=== PATIENT | female | born 1935 | race Caucasian/White ===

== ENCOUNTER → 2016-05-24 | Outpatient (CLI) | payer MEDICARE ==
[~2016-05-24] MED LIST: ALLOPURINOL100 MG PO; ATORVASTATIN PO; BENADRYL25 M2 PO; BENICAR 20MG TA20 MG PO; BENICAR HCT 12.1 TAB PO; BENICAR PO; CELEXA 20MG20 MG/TAB PO; CHOLESTYRAMINE1 PO1; CINNAMON500 MG PO; CIPRO 500MG TA500 MG PO; CRANBERRY1 CAP PO; CYANOCOBAL1000 MCG/1 SC; DOMPERIDONE10 MG/CAP PO; EYEDROPS; FERRATE325 MG PO; LEVAQUIN 5500 MG/TA1 PO; MULTIPLE VITAMI1 CAP PO; NEXIUM 20MG20 MG PO; NEXIUM40 MG PO; NORCO 325 MG-51 TAB PO; OGEN; OGEN 0.625MG0.625 MG PO; OGEN PO; PREVALITE4 GM/5.5 G PO; REGLAN 10MG10 MG/TAB PO; SODIUM BICARBO325 MG PO; VITAMIN B-1000 MCG/T PO; VITAMIN D NATU400 IU PO; VITAMIN D31000 IU PO; VITAMIN D32000 IU PO; VOLTAREN GEL 1%1 TU TP; WELCHOL 625MG625 MG PO; XANAX .25M0.25 MG/TA PO; ZOFRAN ODT4 MG PO; ZYLOPRIM 300MG300 MG PO; [UNRECOGNIZED DRUG - OTHER]; [UNRECOGNIZED DRUG - OTHER] PO
== END ==
LOC: MC.RAD 13:27
DX: N63 Unspecified lump in breast (principal)

== ENCOUNTER → 2016-06-22 | Outpatient (CLI) | payer MEDICARE | LOC: MC.RAD 09:33 | DX: S20.01XA Contusion of right breast, initial encounter (principal) ==

== ENCOUNTER → 2017-01-10 | Outpatient (CLI) | payer MEDICARE | LOC: MC.RAD 11:29 | DX: Z12.31 Encounter for screening mammogram for malignant neoplasm of breast (principal) ==

== ENCOUNTER → 2018-01-14 | Outpatient (CLI) | payer MEDICARE | LOC: MC.RAD 06:48 | DX: Z12.31 Encounter for screening mammogram for malignant neoplasm of breast (principal) ==

== ENCOUNTER 2018-01-28 19:21 | Emergency (ER) | payer MEDICARE ==
[2008-01-20 12:54] VITALS: BP 126/71
[~2018-01-28] VITALS: Ht 167.6 cm; Wt 63.6 kg
[2018-01-28 19:28] VITALS: TEMP 97.1
[2018-01-28 20:07] LABS: BASO # 0.1 (0.0-0.2); BASO % 1.1 % (0.0-2.0); EOS # 0.1 (0.0-0.7); EOS % 2.4 % (0-4.0); GRAN # 2.7 (1.4-6.5); GRAN % 49.6 % (42.2-75.2); HEMATOCRIT 32.7 % (37.0-47.0); HEMOGLOBIN 10.8 g/dl (12.5-16.0); LYMPH # 2.2 (1.2-3.4); LYMPH % 39.5 % (20.0-51.0); MEAN CELL VOLUME 93 fl (80.0-100.0); MEAN CORPUSCULAR HEMOGLOBIN 31 pg (27.0-31.0); MEAN CORPUSCULAR HGB CONC 33 g/dl (33.0-37.0); MEAN PLATELET VOLUME 9.7 fl (7.4-10.4); MONO # 0.4 (0.1-0.6); MONO % 7.4 % (1.7-9.3); PLATELET COUNT 201 K/mm3 (130-400); REDCELL DISTRIBUTION WIDTH-CV 15.3 % (11.5-14.5)
[2018-01-28 20:23] LABS: ALBUMIN 4.7 gm/dL (3.5-5.0); BILIRUBIN,TOTAL 0.7 mg/dL (0.0-1.0); C-REACTIVE PROTEIN 0.7 mg/dL (0.0-0.9); CALCIUM 10.1 mg/dL (8.4-10.2); POTASSIUM 5.1 mmol/L (3.4-5.0); TOTAL PROTEIN 7.9 gm/dL (6.4-8.2)
[2018-01-28 20:47] LABS: COLLECTION METHOD CLEAN CATCH
[2018-01-28 20:54] LABS: PH 8 (5-8); SQUAMOUS EPITHELIAL None Seen /hpf; URINE APPEARANCE Clear; URINE BACTERIA None Seen /hpf; URINE BILIRUBIN Negative (NEGATIVE); URINE BLOOD 1+ (NEGATIVE); URINE COLOR Straw; URINE GLUCOSE Negative (NEGATIVE); URINE KETONE Negative (NEGATIVE); URINE LEUKOCYTE ESTERASE Trace (NEGATIVE); URINE NITRATE Negative (NEGATIVE); URINE PROTEIN(semi-quant) 1+ (NEGATIVE); URINE RBC 0-2 /hpf; URINE UROBILINOGEN Negative (NEGATIVE)
[2018-01-28 22:06] VITALS: BP 154/69; PULSE 65
== END 2018-01-28 22:52 | disposition home or self-care (01) ==
LOC: COL.ER 19:21
PROVIDERS: Emergency Medicine
DX: R10.9 Unspecified abdominal pain (principal); E11.22 Type 2 diabetes mellitus with diabetic chronic kidney disease; N18.4 Chronic kidney disease, stage 4 (severe); I12.9 Hypertensive chronic kidney disease with stage 1 through stage 4 chronic kidney disease, or unspecified chronic kidney disease; F41.9 Anxiety disorder, unspecified; Z90.710 Acquired absence of both cervix and uterus; Z90.49 Acquired absence of other specified parts of digestive tract; Z98.890 Other specified postprocedural states
CPT/HCPCS: J2060; J2405; J3010; J7030

== ENCOUNTER → 2018-08-09 | Outpatient (CLI) | payer MEDICARE | LOC: COL.RAD 13:24 | DX: J98.4 Other disorders of lung (principal); K44.9 Diaphragmatic hernia without obstruction or gangrene ==

== ENCOUNTER → 2019-02-13 | Outpatient (CLI) | payer MEDICARE | LOC: MC.RAD 16:37 | DX: Z12.31 Encounter for screening mammogram for malignant neoplasm of breast (principal) ==

== ENCOUNTER → 2019-04-02 | Outpatient (CLI) | payer MEDICARE | LOC: COL.RAD 12:11 | DX: S09.90XA Unspecified injury of head, initial encounter (principal); G31.9 Degenerative disease of nervous system, unspecified; W19.XXXA Unspecified fall, initial encounter ==

== ENCOUNTER → 2020-02-16 | Outpatient (CLI) | payer MEDICARE | LOC: MC.RAD 11:22 | DX: Z12.31 Encounter for screening mammogram for malignant neoplasm of breast (principal) ==

== ENCOUNTER 2020-07-28 16:13 | Outpatient (CLI) | payer MEDICARE ==
[2008-01-20 12:54] VITALS: BP 126/71
[~2020-07-28] VITALS: Ht 167.6 cm; Wt 58.2 kg
[~2020-07-28 16:13] MED LIST changes: -SODIUM BICARBO325 MG PO; +SODIUM BICARBO650 MG PO; +ZYLOPRIM 100MG100 MG PO; -ZYLOPRIM 300MG300 MG PO
[2020-07-28] MEDS ORDERED: NORVASC 10MG10 MG PO (16:45)
[2020-07-28] MEDS ORDERED: LUTEIN20 M1 PO (16:47)
[2020-07-28] MEDS ORDERED: PREDNISONE10 MG PO (16:48)
[2020-07-28] MEDS ORDERED: PRILOSEC 20MG20 MG PO (16:49)
[2020-07-28 16:56] VITALS: BP 107/68; PULSE 73; TEMP 98.2
== END 2020-07-28 17:39 | disposition home or self-care (01) ==
LOC: EUO 16:13
DX: M81.0 Age-related osteoporosis without current pathological fracture (principal)
CPT/HCPCS: J0897

== ENCOUNTER 2020-10-22 12:48 | Observation (INO) | payer MEDICARE ==
[~2020-10-22] VITALS: Ht 152.4 cm; Wt 55.5 kg
[~2020-10-22 12:48] MED LIST changes: +LUTEIN20 M1 PO; +NORVASC 10MG10 MG PO; +PREDNISONE10 MG PO; +PRILOSEC 20MG20 MG PO
[2020-10-22 16:12] LABS: BASO % 0.4 % (0.0-2.0); EOS % 0.2 % (0-4.0); GRAN # 3.7 (1.4-6.5); GRAN % 75.6 % (42.2-75.2); HEMOGLOBIN 10.8 g/dl (12.5-16.0); LYMPH % 20.9 % (20.0-51.0); MEAN CELL VOLUME 91 fl (80.0-100.0); MEAN CORPUSCULAR HEMOGLOBIN 29 pg (27.0-31.0); MEAN CORPUSCULAR HGB CONC 32 g/dl (33.0-37.0); MEAN PLATELET VOLUME 9.5 fl (7.4-10.4); MONO # 0.1 (0.1-0.6); MONO % 2.3 % (1.7-9.3); PLATELET COUNT 195 K/mm3 (130-400); RED BLOOD COUNT 3.73 M/mm3 (4.10-5.30); REDCELL DISTRIBUTION WIDTH-CV 15.5 % (11.5-14.5)
[2020-10-22 16:15] LABS: PH 7 (5-8); SQUAMOUS EPITHELIAL None Seen /hpf; URINE APPEARANCE Clear; URINE BACTERIA None Seen /hpf; URINE BILIRUBIN Negative (NEGATIVE); URINE BLOOD Negative (NEGATIVE); URINE COLOR Yellow; URINE GLUCOSE Negative (NEGATIVE); URINE KETONE Negative (NEGATIVE); URINE LEUKOCYTE ESTERASE Negative (NEGATIVE); URINE NITRATE Negative (NEGATIVE); URINE PROTEIN(semi-quant) Negative (NEGATIVE); URINE RBC None Seen /hpf; URINE UROBILINOGEN Negative (NEGATIVE)
[2020-10-22 16:21] LABS: COLLECTION METHOD CATHETER
[2020-10-22 16:27] LABS: ALBUMIN 3.7 gm/dL (3.5-5.0); BILIRUBIN,TOTAL 0.5 mg/dL (0.0-1.0); CALCIUM 8.4 mg/dL (8.4-10.2); CREATININE, serum 2.31 (0.52-1.25); POTASSIUM 3.9 mmol/L (3.4-5.0); TOTAL PROTEIN 6.8 gm/dL (6.4-8.2)
[2020-10-22 16:39] LABS: TROPONIN-I 0.029 ng/mL (0.000-0.035)
[2020-10-22 16:40] LABS: C-REACTIVE PROTEIN 1.7 mg/dL (0.0-0.9)
[2020-10-22] MEDS ORDERED: QUESTRAN4 GM/9 GM PO (18:09)
[2020-10-22] MEDS ORDERED: CELEXA 20MG20 MG/TAB PO (18:09)
[2020-10-22] MEDS ORDERED: SODIUM BICARBO650 MG PO (18:12)
[2020-10-22] MEDS ORDERED: PROLIA60 MG/ML SQ (18:16)
[2020-10-22] MEDS ORDERED: B-121000 MCG PO (18:17)
[2020-10-22] MEDS ORDERED: VITAMIN D31000 IU PO (18:17)
[2020-10-22 19:31] VITALS: BP 122/54; PULSE 64; TEMP 98.1
--- NOTE | 2020-10-22 22:51 | NUR ---
PT ADMITED TO THE UNIT AND ADMISSION INTAKE AND ASSESSMENT COMPLETED. PT APPEARS TIRED, AND STRUGGLES TO STAY AWAKE DURING ASSESSMENT. PT IS VERY HARD OF HEARING AND SAYS SHE LEFT HER HEARING AIDES AT HOME. PT BILATERAL BASES SOUNDS DIMISHED UPON AUSCULTATION. PT HAS 3+ PITTING EDEMA TO BLE. PT ORIENTED TO ROOM, CALL LIGHT WITHIN REACH. ATTEMPTED TO GET MED REC BUT PT SAYS SHE DOES NOT KNOW WHAT SHE TAKES AND SENT THE MED LIST HOME WITH HER FRIEND. WILL CONTINUE TO MONITOR.
[2020-10-22 23:53] VITALS: BP 120/65; PULSE 58; TEMP 98.2
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
[2020-10-23 03:22] VITALS: BP 119/60; PULSE 68; TEMP 97.8
--- NOTE | 2020-10-23 05:51 | NUR ---
PT HAD A RESTFUL NIGHT. PT DENIES ANY NEEDS AT THIS TIME. WILL CONTINUE TO MONITOR.
--- NOTE | 2020-10-23 07:00 | NUR ---
Report with MARCELA Fleming. Pt resting in bed with eyes closed, resp even and unlabored. Call light in reach.
[2020-10-23 08:02] VITALS: BP 127/65; PULSE 81; TEMP 98.5
--- NOTE | 2020-10-23 09:00 | NUR ---
Assessment complete. Pt sitting up on side of bed, A&O x 4, denies pain at this time, reports shortness of breath only with activitiy. Saline lock IV to right AC without s/s of complications. Physical assessment otherwise unremarkable. No further needs reported. Call light in reach.
--- NOTE | 2020-10-23 12:01 | NUR ---
Plan is to return home in [place] with Daughter Mary Jo as care support . SW met with patient in room about care. Patient is hard of hearing. Patient reports that she has a male friend that helps her out at home and her daugther can help her but she lives in [place]. Patient reports that her DTR is going to pick her up and take her home. Patient reports that her PCP is Dr. Hightower and she has a specialist for her kidney Dr. To in [place]. Spelling may be incorrect. Patient declines any home health need or supports. Patient reports that she still drives and is fairly independent. Paitent denies any care concerns. Educated on services through case management. NF.
--- NOTE | 2020-10-23 13:25 | NUR ---
Trucking Supervisor stopped by and visited briefly with patient while family was in room. Nothing else needed.
--- NOTE | 2020-10-23 13:30 | NUR ---
Discharge instructions reviewed with pt and pt's daughter regarding follow-up appointments with possible cardiac monitoring. Questions invited and answered. Pt and daughter verbalize understanding. Pt discharged home, escorted out of facility via WC accompanied by VETERANS[employer] COUNSELOR and pt's daughter.
== END 2020-10-23 13:30 | disposition home or self-care (01) ==
LOC: COL.ER 12:48 → MEDICAL 17:13
PROVIDERS: Nurse Practitioner Primary Care; ADMIT Internal Medicine
DX: R06.02 Shortness of breath (principal); E78.5 Hyperlipidemia, unspecified; I13.10 Hypertensive heart and chronic kidney disease without heart failure, with stage 1 through stage 4 chronic kidney disease, or unspecified chronic kidney disease; D63.1 Anemia in chronic kidney disease; N18.4 Chronic kidney disease, stage 4 (severe); E87.1 Hypo-osmolality and hyponatremia; K21.9 Gastro-esophageal reflux disease without esophagitis; M10.9 Gout, unspecified; N39.0 Urinary tract infection, site not specified; M81.0 Age-related osteoporosis without current pathological fracture; M19.90 Unspecified osteoarthritis, unspecified site; F41.9 Anxiety disorder, unspecified; Z90.49 Acquired absence of other specified parts of digestive tract; Z20.822 Contact with and (suspected) exposure to COVID-19; Z90.710 Acquired absence of both cervix and uterus; Z79.899 Other long term (current) drug therapy; Z80.1 Family history of malignant neoplasm of trachea, bronchus and lung; Z83.3 Family history of diabetes mellitus
CPT/HCPCS: G0378; J1644; J1940; J7512